=== PATIENT | male | born 1955 | race Caucasian/White ===

== ENCOUNTER 2017-09-21 15:15 | Observation (INO) ==
[2017-09-21 15:58] LABS: Basophils # 0.1 K/mcL (0.0-0.2); Basophils % 0.5 %; Eosinophils # 0.1 K/mcL (0.0-0.6); Eosinophils % 0.8 %; Hematocrit 44.3 % (37.5-50.1); Hemoglobin 15.7 g/dL (12.9-16.9); Immature Granulocytes % 1.1 % (0-4); Lymphocytes # 1.7 K/mcL (0.6-4.6); Lymphocytes % 15.2 %; Mean Corpuscular HGB Conc 35.4 g/dL (31.6-35.5); Mean Corpuscular Hemoglobin 31.8 pg (28.0-33.3); Mean Corpuscular Volume 89.7 fL (83.0-100.0); Mean Platelet Volume 9.9 fL (9.4-12.4); Monocytes # 0.6 K/mcL (0.0-1.3); Monocytes % 5.4 %; Neutrophils # 8.5 K/mcL (1.6-8.9); Platelet Count 297 K/mcL (140-400); Red Blood Count 4.94 M/mcL (4.19-5.50); Red Cell Distribution Width 13.1 % (11.5-14.5)
[2017-09-21 16:04] LABS: Prothrombin Time 11.2 Seconds (9.4-12.1)
[2017-09-21 16:07] LABS: Activated Partial Thrombo Time 25.3 Seconds (26.0-36.0)
[2017-09-21 16:17] LABS: Alanine Aminotransferase 18 Units/L (0-55); Albumin 3.9 g/dL (3.5-5.0); Albumin/Globulin Ratio 1.1 (1.1-2.2); Alkaline Phosphatase 62 Units/L (38-126); Aspartate Amino Transferase 18 Units/L (5-34); BUN/Creatinine Ratio 17 (6-26); Bilirubin,Total 0.7 mg/dL (0.2-1.2); Blood Urea Nitrogen 20 mg/dL (8-26); Calcium 9.2 mg/dL (8.6-10.8); Carbon Dioxide 22 mEq/L (19-29); Chloride 106 mEq/L (98-109); Globulin 3.4 g/dL (2.4-3.5); Glucose 156 mg/dL (70-99); Osmolality,Calculated 300 (280-300); Potassium 3.3 mEq/L (3.5-4.5); Sodium 142 mEq/L (136-145); Total Protein 7.3 g/dL (6.0-8.3); eGFR For African Americans > 60 (> 60); eGFR For Non-African Americans > 60 (> 60)
[2017-09-21] MEDS ORDERED: Potassium Effervescent 25 MEQ TABLET.EFF PO ONE (16:31)
[2017-09-21] MEDS ORDERED: Ondansetron 4 MG/2 ML VIAL IVP ONE (16:33)
--- NOTE | 2017-09-21 16:49 | Emergency Department Note ---
Disposition Referrals: NONE,PCP [Primary Care Provider] - Forms: ED Satisfaction Letter Nausea/Vomiting/Diarrhea HPI - General Chief complaint: ED Nausea/Vomiting/Diarrhea Stated complaint: n/v Time Seen by Provider: 09/21/17 15:30 Source: patient, EMS Mode of arrival: EMS Limitations: no limitations - History of Present Illness HPI Narrative: 62-year-old male who was in his basement working on a kerosene heater when he was bending over working out when he would stand up he got lightheaded dizzy felt like he was could have passed out he loss his balance a couple times and then was able to break his way to the steps where his that helped and she said he was diaphoretic and was complaining no chest pain no chest pressure but that he wanted throw up as result he was then brought to the emergency room after family members convinced him the need to be evaluated he denies chest pain chest pressure had a little bit of a headache when the vomiting started he was working on a kerosene engine heater in a closed space he has had no associated trauma he did become lightheaded and dizzy when bent over he denies any blurred vision double vision loss vision he states that everything spins around and he denies cough cold of flulike symptoms denies any known fluid exposures denies any abdominal pain or discomfort diarrhea melena hematochezia or hematemesis Pt Subjective Complaint: nausea, vomiting (and dry heaving), other (vertigo symptoms) Onset (ago): hour(s) Description of emesis: food contents Associated Abdominal Pain: No Consistency: intermittent Improves with: nothing Worsens with: movement Context: other (Use home grown marijuana daily) Associated symptoms: Reports: headaches, malaise, nausea/vomiting. Denies: myalgias, chest pain, cough, diaphoresis, fever/chills, loss of appetite, dysuria, shortness of breath, syncope, weakness - Related Data Home Medications Medication Instructions Recorded Confirmed No Known Home Drugs 09/21/17 09/21/17 Allergies Allergy/AdvReac Type Severity Reaction Status Date / Time No Known Allergies Allergy Verified 09/21/17 15:21 All systems ED: reviewed and negative except as stated. Review of Systems: As Per HPI Constitutional: Denies: fever, chills, weakness Eyes: Denies: eye pain, eye discharge ENT ED: Denies: ear pain, throat pain Cardiovascular: Denies: chest pain, palpitations Respiratory: Denies: cough, dyspnea Gastrointestinal: Reports: nausea, vomiting. Denies: abdominal pain, diarrhea, constipation Genitourinary: Denies: urgency, dysuria Musculoskeletal: Denies: back pain, neck pain Integumentary: Denies: rash, abrasion Neurological: Reports: weakness. Denies: headache Psychiatric: Denies: anxiety Endocrine: Denies: fatigue Hematological/Lymphatic: Denies: easy bleeding Allergic/Immunologic: Denies: facial swelling Past Medical History - Past Medical History Attestation: Yes The following information was validated with the patient. Source: patient, old records reviewed, nursing notes reviewed Medical history: Reports: no medical history Psychiatric history: Reports: no psych history - Social History Smoking Status: Never smoker Smokeless Tobacco Status: No Alcohol use: Reports: heavy Drug use: Reports: marijuana Physical Exam - General Limitations: no limitations General appearance: alert, in no apparent distress, other (appears to be resting with eyes closed for comfort) - Head Head exam: normal inspection, other (facial deformity noted on thenasal bridge) - Eye Eye exam: Present: normal appearance, PERRL, EOMI - ENT ENT exam: normal exam, normal oropharynx, mucous membranes moist, TM's normal bilaterally, normal external ear exam - Neck Neck exam: Present: normal inspection, full ROM, trachea midline - Chest Chest inspection: Present: normal inspection, symmetric chest wall rise - Respiratory Respiratory exam: Present: normal lung sounds bilaterally - Cardiovascular Cardiovascular exam: Present: regular rate, normal rhythm - Abdominal Exam Abdominal exam: Present: soft, Non-Tender, hyperactive bowel sounds. Absent: mass, pulsatile mass, hernia - Extremities Exam Extremities exam: Present: normal inspection, full ROM, normal capillary refill , other ( has full function of the extremities he follows commands with lip of shank cutter strengths are equal bilaterally he is able to twist pinch pull and hold his legs up against resistance). Absent: tenderness, pedal edema, joint swelling, calf tenderness - Expanded Lower Extremity Exam Neurovascular/Tendon exam: Present: normal capillary refill, normal fine/light touch Gait: observed and normal - Back Exam Back exam: Present: normal inspection, full ROM. Absent: muscle spasm - Neurological Exam Neurological exam: Present: alert, oriented X3, CN II-XII intact, other (With motion patient becomes dizzy and vomits) - Psychiatric Psychiatric exam: Present: normal affect, normal mood - Skin Skin exam: Present: warm, dry, intact, normal color Course Course Narrative: Sincerely examined given meclizine and potassium because his potassium was low he vomited right back seat then given 4 mg Zofran still had some dry heaves which was then followed by 25 mg of Phenergan which did seem to help resolve most of symptoms with exception of still little bit persistent dizziness with positional changes this may be vertiginous in etiology but is not showing any outward signs of having an acute stroke getting any focal deficits noted he was not having any chest pain or chest pressure which could be associated with a myocardial infarction had no sharing or tearing-type pain which could be consistent with an aneurysm leak Sipos was a metabolic or infectious etiology patient will be observed overnight due to the intractable vomiting with movement which is most likely vertiginous etiology Vital Signs Temperature 95.0 F L 09/21/17 15:15 Pulse Rate 68 09/21/17 15:15 Respiratory Rate 16 09/21/17 15:15 Blood Pressure 179/107 09/21/17 15:15 O2 Sat by Pulse Oximetry 98 09/21/17 15:15 Temperature 96.6 F L 09/21/17 17:06 Pulse Rate 83 09/21/17 18:11 Respiratory Rate 16 09/21/17 18:11 Blood Pressure 168/108 09/21/17 18:11 O2 Sat by Pulse Oximetry 94 09/21/17 18:11 Oxygen Delivery Oxygen Delivery Nasal Cannula Nausea/Vomiting/Diarrhea - Differential Diagnosis Likely: dehydration - Medical Records Medical records reviewed: Yes I reviewed the patient's medical records. - Lab Data Lab results reviewed: Yes I reviewed the patient's lab results. Result diagrams: 09/21/17 15:48 09/21/17 15:48 Lab Results 09/21/17 09/21/17 09/21/17 Range/Units 15:48 15:48 15:48 WBC 11.1 (4.3-11.1) K/mcL RBC 4.94 (4.19-5.50) M/mcL Hgb 15.7 (12.9-16.9) g/dL Hct 44.3 (37.5-50.1) % MCV 89.7 (83.0-100.0) fL MCH 31.8 (28.0-33.3) pg MCHC 35.4 (31.6-35.5) g/dL RDW 13.1 (11.5-14.5) % Plt Count 297 (140-400) K/mcL MPV 9.9 (9.4-12.4) fL Immature Gran % 1.1 (0-4) % Seg Neutrophils % 77.0 % Lymphocytes % 15.2 % Monocytes % 5.4 % Eosinophils % 0.8 % Basophils % 0.5 % Neutrophils # 8.5 (1.6-8.9) K/mcL Lymphocytes # 1.7 (0.6-4.6) K/mcL Monocytes # 0.6 (0.0-1.3) K/mcL Eosinophils # 0.1 (0.0-0.6) K/mcL Basophils # 0.1 (0.0-0.2) K/mcL PT 11.2 (9.4-12.1) Seconds INR 1.0 APTT 25.3 L (26.0-36.0) Seconds Carboxyhemoglobin (0-3) % Sodium 142 (136-145) mEq/L Potassium 3.3 L (3.5-4.5) mEq/L Chloride 106 (98-109) mEq/L Carbon Dioxide 22 (19-29) mEq/L BUN 20 (8-26) mg/dL Creatinine 1.17 (0.72-1.25) mg/dL Est GFR ( Amer) > 60 (> 60) Est GFR (Non-Af Amer) > 60 (> 60) BUN/Creatinine Ratio 17 (6-26) Glucose 156 H (70-99) mg/dL Calculated Osmolality 300 (280-300) Calcium 9.2 (8.6-10.8) mg/dL Total Bilirubin 0.7 (0.2-1.2) mg/dL AST 18 (5-34) Units/L ALT 18 (0-55) Units/L Alkaline Phosphatase 62 (38-126) Units/L Troponin I (0-0.03) ng/mL B-Natriuretic Peptide (0-100) pg/mL Serum Total Protein 7.3 (6.0-8.3) g/dL Albumin 3.9 (3.5-5.0) g/dL Globulin 3.4 (2.4-3.5) g/dL Albumin/Globulin Ratio 1.1 (1.1-2.2) Urine Color (Yellow) Urine Clarity (Clear) Urine pH (5.0-8.0) pH Units Ur Specific [place] (1.010-1.025) Urine Protein (Neg-Trace) mg/dL Urine Glucose (UA) (Normal) mg/dL Urine Ketones (Negative) mg/dL Urine Blood (Negative) Urine Nitrite (Negative) Urine Bilirubin (Negative) Urine Urobilinogen (Normal) mg/dL Ur Leukocyte Esterase (Negative) Urine Microscopic RBC (0-3) per hpf Urine Microscopic WBC (0-3) per hpf Ur Squamous Epith Cells (None-Few) per lpf Urine Bacteria (None-Few) per hpf Urine Mucus (Few) Ur Culture Indicated? (NO) Urine Opiates Screen (Ndthqd=314) ng/mL Ur Oxycodone Screen (Cutoff= 100) ng/mL Ur Barbiturates Screen (Qzniad=151) ng/mL Ur Phencyclidine Scrn (Cutoff=25) ng/mL Ur Amphetamines Screen (Fwyvgj=6592) ng/mL U Benzodiazepines Scrn (Pxfmhh=638) ng/mL Urine Cocaine Screen (Cutoff= 300) ng/mL U Marijuana (THC) Screen (Cutoff = 50) ng/mL 09/21/17 09/21/17 09/21/17 Range/Units 15:48 15:48 15:48 WBC (4.3-11.1) K/mcL RBC (4.19-5.50) M/mcL Hgb (12.9-16.9) g/dL Hct (37.5-50.1) % MCV (83.0-100.0) fL MCH (28.0-33.3) pg MCHC (31.6-35.5) g/dL RDW (11.5-14.5) % Plt Count (140-400) K/mcL MPV (9.4-12.4) fL Immature Gran % (0-4) % Seg Neutrophils % % Lymphocytes % % Monocytes % % Eosinophils % % Basophils % % Neutrophils # (1.6-8.9) K/mcL Lymphocytes # (0.6-4.6) K/mcL Monocytes # (0.0-1.3) K/mcL Eosinophils # (0.0-0.6) K/mcL Basophils # (0.0-0.2) K/mcL PT (9.4-12.1) Seconds INR APTT (26.0-36.0) Seconds Carboxyhemoglobin 0.8 (0-3) % Sodium (136-145) mEq/L Potassium (3.5-4.5) mEq/L Chloride (98-109) mEq/L Carbon Dioxide (19-29) mEq/L BUN (8-26) mg/dL Creatinine (0.72-1.25) mg/dL Est GFR ( Amer) (> 60) Est GFR (Non-Af Amer) (> 60) BUN/Creatinine Ratio (6-26) Glucose (70-99) mg/dL Calculated Osmolality (280-300) Calcium (8.6-10.8) mg/dL Total Bilirubin (0.2-1.2) mg/dL AST (5-34) Units/L ALT (0-55) Units/L Alkaline Phosphatase (38-126) Units/L Troponin I 0.01 (0-0.03) ng/mL B-Natriuretic Peptide 25 (0-100) pg/mL Serum Total Protein (6.0-8.3) g/dL Albumin (3.5-5.0) g/dL Globulin (2.4-3.5) g/dL Albumin/Globulin Ratio (1.1-2.2) Urine Color (Yellow) Urine Clarity (Clear) Urine pH (5.0-8.0) pH Units Ur Specific [place] (1.010-1.025) Urine Protein (Neg-Trace) mg/dL Urine Glucose (UA) (Normal) mg/dL Urine Ketones (Negative) mg/dL Urine Blood (Negative) Urine Nitrite (Negative) Urine Bilirubin (Negative) Urine Urobilinogen (Normal) mg/dL Ur Leukocyte Esterase (Negative) Urine Microscopic RBC (0-3) per hpf Urine Microscopic WBC (0-3) per hpf Ur Squamous Epith Cells (None-Few) per lpf Urine Bacteria (None-Few) per hpf Urine Mucus (Few) Ur Culture Indicated? (NO) Urine Opiates Screen (Jbfchk=614) ng/mL Ur Oxycodone Screen (Cutoff= 100) ng/mL Ur Barbiturates Screen (Iucdao=956) ng/mL Ur Phencyclidine Scrn (Cutoff=25) ng/mL Ur Amphetamines Screen (Ccnnke=6805) ng/mL U Benzodiazepines Scrn (Cosnau=863) ng/mL Urine Cocaine Screen (Cutoff= 300) ng/mL U Marijuana (THC) Screen (Cutoff = 50) ng/mL 09/21/17 09/21/17 Range/Units 17:25 17:25 WBC (4.3-11.1) K/mcL RBC (4.19-5.50) M/mcL Hgb (12.9-16.9) g/dL Hct (37.5-50.1) % MCV (83.0-100.0) fL MCH (28.0-33.3) pg MCHC (31.6-35.5) g/dL RDW (11.5-14.5) % Plt Count (140-400) K/mcL MPV (9.4-12.4) fL Immature Gran % (0-4) % Seg Neutrophils % % Lymphocytes % % Monocytes % % Eosinophils % % Basophils % % Neutrophils # (1.6-8.9) K/mcL Lymphocytes # (0.6-4.6) K/mcL Monocytes # (0.0-1.3) K/mcL Eosinophils # (0.0-0.6) K/mcL Basophils # (0.0-0.2) K/mcL PT (9.4-12.1) Seconds INR APTT (26.0-36.0) Seconds Carboxyhemoglobin (0-3) % Sodium (136-145) mEq/L Potassium (3.5-4.5) mEq/L Chloride (98-109) mEq/L Carbon Dioxide (19-29) mEq/L BUN (8-26) mg/dL Creatinine (0.72-1.25) mg/dL Est GFR ( Amer) (> 60) Est GFR (Non-Af Amer) (> 60) BUN/Creatinine Ratio (6-26) Glucose (70-99) mg/dL Calculated Osmolality (280-300) Calcium (8.6-10.8) mg/dL Total Bilirubin (0.2-1.2) mg/dL AST (5-34) Units/L ALT (0-55) Units/L Alkaline Phosphatase (38-126) Units/L Troponin I (0-0.03) ng/mL B-Natriuretic Peptide (0-100) pg/mL Serum Total Protein (6.0-8.3) g/dL Albumin (3.5-5.0) g/dL Globulin (2.4-3.5) g/dL Albumin/Globulin Ratio (1.1-2.2) Urine Color Yellow (Yellow) Urine Clarity Clear (Clear) Urine pH 7.0 (5.0-8.0) pH Units Ur Specific [place] 1.020 (1.010-1.025) Urine Protein 30 H (Neg-Trace) mg/dL Urine Glucose (UA) 100 H (Normal) mg/dL Urine Ketones 15 H (Negative) mg/dL Urine Blood Small H (Negative) Urine Nitrite Negative (Negative) Urine Bilirubin Negative (Negative) Urine Urobilinogen Normal (Normal) mg/dL Ur Leukocyte Esterase Negative (Negative) Urine Microscopic RBC 3-5 H (0-3) per hpf Urine Microscopic WBC 0-3 (0-3) per hpf Ur Squamous Epith Cells Few (None-Few) per lpf Urine Bacteria Few (None-Few) per hpf Urine Mucus Few (Few) Ur Culture Indicated? NO (NO) Urine Opiates Screen Negative (Whjpen=403) ng/mL Ur Oxycodone Screen Negative (Cutoff= 100) ng/mL Ur Barbiturates Screen Negative (Wwefdj=938) ng/mL Ur Phencyclidine Scrn Negative (Cutoff=25) ng/mL Ur Amphetamines Screen Negative (Qqvoqq=2436) ng/mL U Benzodiazepines Scrn Negative (Hyljfp=210) ng/mL Urine Cocaine Screen Negative (Cutoff= 300) ng/mL U Marijuana (THC) Screen Positive H (Cutoff = 50) ng/mL - Radiology Data Radiology results reviewed: Yes I reviewed the patient's radiology results. ITS Impressions Head CT 09/21/17 15:30 IMPRESSION: No acute intracranial abnormality. D/ / Maggie Kee Cha, MD / Maggie Kee Cha, MD Interpreting Provider: Maggie Kee Cha, MD Chest X-Ray 09/21/17 15:31 IMPRESSION: No acute process. D/ / Tevin Carr MD / Tevin Carr MD Interpreting Provider: Tevin Carr MD - EKG Data EKG attestation: Yes I reviewed and interpreted this EKG. EKG results narrative: Focal PVC normal sinus rhythm nonspecific T-wave rate 70 WA 173 QRS 107 QT 423 access 6 similar to EKG provided by EMS Critical Care Time Critical Care Time: No
[2017-09-21] MEDS ORDERED: *HR* Promethazine 25 MG/ML VIAL IVP ONE (17:27)
[2017-09-21 17:37] LABS: Bilirubin,Urine Negative (Negative); Blood,Urine Small (Negative); Clarity,Urine Clear (Clear); Color,Urine Yellow (Yellow); Glucose,Urine (UA) 100 mg/dL (Normal); Ketones,Urine 15 mg/dL (Negative); Leukocyte Esterase,Urine Negative (Negative); Nitrite,Urine Negative (Negative); Protein,Urine 30 mg/dL (Neg-Trace); Urobilinogen,Urine Normal (Normal)
[2017-09-21 17:43] LABS: Bacteria,Urine Few per hpf (None-Few); Mucus,Urine Few (Few); Squamous Epithelial Cell,Urine Few per lpf (None-Few); WBC,Urine 0-3 per hpf (0-3)
[2017-09-21 17:50] LABS: Amphetamine Screen,Urine Negative ng/mL (Cutoff=1000); Barbiturate Screen,Urine Negative ng/mL (Cutoff=200); Benzodiazepines Screen,Urine Negative ng/mL (Cutoff=200); Cannabinoid Screen,Urine Positive ng/mL (Cutoff = 50); Cocaine Screen,Urine Negative ng/mL (Cutoff= 300); Opiate Screen,Urine Negative ng/mL (Cutoff=300); Phencyclidine Screen,Urine Negative ng/mL (Cutoff=25)
[2017-09-21] MEDS ORDERED: cloNIDine HCl 0.1 MG TABLET PO STA (18:46)
[2017-09-21] MEDS ORDERED: Ondansetron 4 MG/2 ML VIAL IVP PRN (20:05)
[2017-09-21] MEDS ORDERED: Acetaminophen 325 MG TABLET PO PRN (20:05)
[2017-09-21] MEDS ORDERED: *HR* Promethazine 25 MG/ML VIAL IVP PRN (20:05)
[2017-09-21] MEDS ORDERED: Ibuprofen 400 MG TABLET PO PRN (20:05)
[2017-09-21] MEDS ORDERED: Naloxone 0.4 MG/ML INJ IVP PRN (20:05)
[2017-09-21] MEDS ORDERED: cloNIDine HCl 0.1 MG TABLET PO ONE (21:00)
[2017-09-21] MEDS ORDERED: *HR* Propranolol 1 MG/ML VIAL IVP ONE (21:00)
[2017-09-21] MEDS: 0.9 % Sodium Chloride 1,000 ML IVC SCH (21:14)
[2017-09-22] MEDS: 0.9 % Sodium Chloride 1,000 ML IVC SCH (03:45)
[2017-09-22] MEDS: cloNIDine HCl 0.1 MG TABLET PO SCH ×2 (03:47→04:58)
[2017-09-22 04:50] LABS: Basophils % 0.2 %; Hemoglobin 13.8 g/dL (12.9-16.9); Immature Granulocytes % 0.2 % (0-4); Lymphocytes # 1.7 K/mcL (0.6-4.6); Lymphocytes % 18.7 %; Mean Corpuscular HGB Conc 35.4 g/dL (31.6-35.5); Mean Corpuscular Hemoglobin 31.5 pg (28.0-33.3); Mean Platelet Volume 10.1 fL (9.4-12.4); Monocytes # 0.7 K/mcL (0.0-1.3); Monocytes % 7.3 %; Neutrophils # 6.8 K/mcL (1.6-8.9); Platelet Count 258 K/mcL (140-400); Red Blood Count 4.38 M/mcL (4.19-5.50); Segmented Neutrophils % 73.6 %
[2017-09-22 04:54] LABS: INR 1.1; Prothrombin Time 12.4 Seconds (9.4-12.1)
[2017-09-22 04:57] LABS: Activated Partial Thrombo Time 24.9 Seconds (26.0-36.0)
[2017-09-22 05:05] LABS: BUN/Creatinine Ratio 19 (6-26); Blood Urea Nitrogen 19 mg/dL (8-26); Calcium 8.1 mg/dL (8.6-10.8); Carbon Dioxide 22 mEq/L (19-29); Chloride 108 mEq/L (98-109); Glucose 132 mg/dL (70-99); Osmolality,Calculated 296 (280-300); Potassium 3.1 mEq/L (3.5-4.5); Sodium 141 mEq/L (136-145); eGFR For African Americans > 60 (> 60); eGFR For Non-African Americans > 60 (> 60)
[2017-09-22 10:12] VITALS: BP 132/85
--- NOTE | 2017-09-22 11:57 | Internal Med History&Physical ---
Date of Encounter: 09/22/17 Time of Encounter: 11:30 Assessment and Plan (1) Fall Current visit: Yes Status: Acute Etiology not determined. He has had no further falls or near falls since admission. He feels almost back to his baseline and wishes to be discharged home. Qualifiers: Encounter type: initial encounter Qualified Code(s): W19.XXXA - Unspecified fall, initial encounter (2) Hypertension Current visit: Yes Status: Chronic He will be given antihypertensive medication. Qualifiers: Hypertension type: essential hypertension Qualified Code(s): I10 - Essential (primary) hypertension (3) Hypokalemia Current visit: Yes Status: Acute Supplement potassium will be given. Internal Medicine - H&P: HPI Chief complaint: Fall and weakness Admitted From: Emergency Dept Plans for Post Hospital Care: Home History of present illness: Mr. Rodriguez is a 62 year old male came to emergency room stating he had 2 episodes of falling in his basement with feelings of weakness. He had cold diaphoresis and episodes of vomiting. There was no chest pain associated. He was evaluated in emergency room and found to have mild hypokalemia. Blood pressure was significantly elevated and he was admitted to [facility] floor for ongoing care needs. He states he has not seen a doctor in many years and takes no regular medications. He denies previous similar episodes of falling or weakness. He stays very active including working out with weights with no chest pain or dyspnea. He feels back to his baseline now and wishes to be discharged home. Past Med Surg Social Fam HX - Past Medical History Medical history: no medical history Psychiatric history: no psych history - Past Surgical History Surgical History: no surgical history - Social History Smoking Status: Never smoker Smokeless Tobacco Status: No Alcohol use: heavy Drug use: marijuana - Family History Father Living Status: Age at : 44 Hx Family Cancer: Yes Internal Medicine - H&P: Meds No Known Home Drugs 09/21/17 [History] 3 Allergy/AdvReac Type Severity Reaction Status Date / Time No Known Allergies Allergy Verified 09/21/17 15:21 All Systems PM: A 10-system review of systems was performed and is negative for pertinent findings except as documented above in the HPI. Review of systems: Gen.: He states his weight has been stable the past few months Cardiovascular: He denies LA hypertension heart failure angina DVT or pulmonary embolus Respiratory: He smoked from age [age] up to 3 packs per day. He denies chronic lung disease. GI: He denies disorders of his liver gallbladder or exocrine pancreas : He denies hematuria dysuria or kidney stones Neurologic: He denies large distribution strokes or seizures. Endocrine: He denies diabetes thyroid disease or hyperlipidemia Hematology/oncology: He denies blood disorders cancers or anemia Psychiatric: He denies anxiety depression or other mental health issues [place] skeletal: He denies arthritis gout or other bone joint or muscle disorders - Constitutional Vitals: Temp Pulse Resp BP Pulse Ox 98.0 F 84 18 132/85 93 09/22/17 10:08 09/22/17 10:08 09/22/17 10:08 09/22/17 10:08 09/22/17 10:08 Exam: Gen.: He is a well-developed well-nourished male who appears in no acute distress at present time HEENT: Head is atraumatic and normocephalic. Eyes: EOMI. There is no scleral icterus. Mouth: Mucosa is moist Neck: Supple and nontender. There is no thyromegaly or adenopathy noted. Heart: Regular without murmurs gallops or ectopics Lungs: No wheezes or crackles are heard. Abdomen: Soft and nontender. No masses or guarding are noted. Extremities: There is no cyanosis edema or clubbing noted. Dorsalis pedis and posttibial pulses are 1-2 over 2 bilaterally. Neurologic: Mental status: He is talkative and a good historian. Cranial nerves : There is slight asymmetry of his face with slight flattening of the right nasolabial fold. Smile is symmetric. RHead wrinkles bilaterally. Tongue protrudes midline. EOMI. He is slightly hard of hearing. Motor: There is no pronator drift. Cerebellar: Finger to nose is intact bilaterally. Skin: Warm and dry Internal Med - H&P Results - Labs CBC & Chem 7: 09/22/17 04:13 09/22/17 04:13 Labs: Short CBC 09/22/17 Range/Units 04:13 WBC 9.3 (4.3-11.1) K/mcL Hgb 13.8 D (12.9-16.9) g/dL Hct 39.0 (37.5-50.1) % Plt Count 258 (140-400) K/mcL Neutrophils # 6.8 (1.6-8.9) K/mcL BMP 09/22/17 04:13 Sodium 141 Potassium 3.1 L Chloride 108 Carbon Dioxide 22 BUN 19 Creatinine 1.00 Glucose 132 H Calcium 8.1 L Cardiac Enzymes 09/21/17 09/22/17 09/22/17 Range/Units 21:48 04:13 10:15 Troponin I 0.02 0.03 0.02 (0-0.03) ng/mL
--- NOTE | 2017-09-22 12:06 | Discharge Summary ---
Date of Encounter: 09/22/17 Time of Encounter: 11:30 - Discharge Diagnosis (1) Fall Priority: Primary Status: Acute Qualifiers: Encounter type: initial encounter Qualified Code(s): W19.XXXA - Unspecified fall, initial encounter (2) Hypertension Priority: Secondary Status: Chronic Qualifiers: Hypertension type: essential hypertension Qualified Code(s): I10 - Essential (primary) hypertension (3) Hypokalemia Priority: Secondary Status: Acute - Discharge Medications Prescriptions: Lisinopril [Zestril] 10 mg PO DAILY #30 tablet Metoprolol XL (24 HR) Succ [Toprol XL] 50 mg PO DAILY #30 tab.er.24h Potassium Chloride 10 meq PO DAILY #3 tab.er.prt Home Medications: Lisinopril [Zestril] 10 mg PO DAILY #30 tablet 09/22/17 [Rx] Metoprolol XL (24 HR) Succ [Toprol XL] 50 mg PO DAILY #30 tab.er.24h 09/22/17 [ Rx] Potassium Chloride 10 meq PO DAILY #3 tab.er.prt 09/22/17 [Rx] Allergies/Adverse Reactions: 3 Allergy/AdvReac Type Severity Reaction Status Date / Time No Known Allergies Allergy Verified 09/21/17 15:21 Date of admission: 09/21/17 19:02 Primary care physician: PCP NONE - Patient Status Disposition: Home, Self-Care Overall status at discharge: patient is progressing back to baseline - Discharge Instructions Follow Up With: NONE,PCP [Primary Care Provider] - 1 week - Diet and Activity Activity: resume usual activities as tolerated Diet: advance to your usual diet Hospital course: Mr. Rodriguez is a 62 year old male who came to emergency room stating he had 2 episodes of falling in his basement with feelings of weakness. He had cold diaphoresis and episodes of vomiting. There was no chest pain associated. He was evaluated in emergency room and found to have mild hypokalemia. Blood pressure was significantly elevated and he was admitted to [facility] for ongoing care needs. Initial orders were written by the emergency room physician. I saw him on September 22 performed the history and physical. He had no further falls or near falls after admission. He had no further vomiting after arrival to [facility]. He felt almost back to his baseline when I saw him and wished to be discharged home. I will prescribe lisinopril and metoprolol for blood pressure. He should follow with PCP within one week to have ongoing health monitoring. He had hyperglycemia with blood sugar 132 on September 22. His PCP can follow-up on this. He was given supplement potassium prior to discharge and will continue for 3 days after discharge. His PCP can monitor labs. - Time Spent with Patient Total time spent providing and/or coordinating discharge services: - Constitutional Vitals: Temp Pulse Resp BP Pulse Ox 98.0 F 84 18 132/85 93 09/22/17 10:08 09/22/17 10:08 09/22/17 10:08 09/22/17 10:08 09/22/17 10:08
[2017-09-22] MEDS ORDERED: FLUARIX QUAD 2017-18 36MOS UP/PF 0.5 ML SYRINGE IM ONE (12:47)
--- NOTE | 2017-09-23 16:21 | Electrocardiograph Report ---
[address] [address] Test Date: 2017-09-21 Pat Name: Dequan Rodriguez Department: [id number] Room: [facility] Gender: M Counter Manager: [id number] : 1955 Requested By: Denise Francois Order Number: [id number] Reading MD: Sukhi Ruelas Measurements Intervals [place] Rate: 70 P: 24 [place]: 173 QRS: 6 QRSD: 107 T: 53 QT: 423 QTc: 444 Interpretive Statements SINUS RHYTHM WITH OCCASIONAL VENTRICULAR PREMATURE COMPLEXES NONSPECIFIC T-WAVE ABNORMALITY Electronically Signed On 09-23-2017 16:19:44 EST by Sukhi Ruelas
== END 2017-09-22 13:40 | disposition home or self-care (01) ==
LOC: INPPIK 15:15 → EMEROOPIK 15:15 → INPPIK 19:58
PROVIDERS: ADMIT Emergency Medicine; ATTEND Internal Medicine